=== PATIENT | male | born 1990 | race Caucasian/White ===

== ENCOUNTER 2017-01-15 10:52 | Emergency (ER) | payer OTHER ==
[~2017-01-15 10:52] MED LIST: NO MEDICATIONS
== END 2017-01-15 11:00 | disposition home or self-care (01) ==
LOC: SED 10:52
DX: H10.32 Unspecified acute conjunctivitis, left eye (principal); F17.200 Nicotine dependence, unspecified, uncomplicated; Z88.0 Allergy status to penicillin
CPT/HCPCS: 99283